=== PATIENT | female | born 1960 | race Caucasian/White ===

== ENCOUNTER 2018-06-24 11:28 | Emergency (ER) | payer BC ==
[~2018-06-24] VITALS: Ht 162.6 cm; Wt 45.4 kg
[2018-06-24 11:43] VITALS: Ht 162.6 cm; Wt 45.4 kg
[2018-06-24 14:43] VITALS: BP 130/69
== END 2018-06-24 14:43 | disposition home or self-care (01) ==
LOC: ED 11:28
DX: Z45.2 Encounter for adjustment and management of vascular access device (principal); M06.9 Rheumatoid arthritis, unspecified; I10 Essential (primary) hypertension; E78.00 Pure hypercholesterolemia, unspecified
CPT/HCPCS: Q0092